=== PATIENT | male | born 1955 | race Caucasian/White ===

== ENCOUNTER 2016-09-20 11:39 | Inpatient (IN) | payer MEDICARE ==
[2016-09-20] VITALS (9 sets, daily range): BP systolic 127–161; BP diastolic 63–83; PULSE 66–71; RESP 18–22; O2SAT 89–100
[~2016-09-20] VITALS: Ht 167.6 cm; Wt 108.8 kg
[~2016-09-20 11:39] MED LIST: ACET-171 PO; ASPI-973 PO; CARV3.12 PO; CLOP75TA3 PO; FAMO40TA6 PO; GLIP10TA10 PO; KEP500TA PO; LIP40 PO; TAMS0.4C98 PO
[2016-09-20] MEDS ORDERED: Albuterol 2.5 mg/3 mL Inhalation Solution NEB ONE ×2 (12:05→12:55)
[2016-09-20 12:45] LABS: BASOPHILS % (AUTO) 0.3 % (0-3); EOSINOPHILS % (AUTO) 3.4 % (0-5); MONOCYTES % (AUTO) 12.9 % (4-12); Mean Corpuscular Hemoglobin 27.3 pg (27.0-35.0); Mean Corpuscular Volume 86.4 fL (81-100); NEUTROPHILS % (AUTO) 69.9 % (40-74); Platelet Count 241 bil/L (150-400)
--- NOTE | 2016-09-20 12:45 | ED.REPORT ---
HPI-General Illness Date of Service September 20, 2016 ED Provider: Matthew Paris DO The patient is a 61 year old male w/ a hx of right foot amputation, CVA, CHF, A- fib, hyperlipidemia, HTN, and pleural effusion who presents to the ED due to SOB for the past 3 days. C/o associated cold symptoms including fever, wheezing , and nasal congestion. He has been seen by an infectious disease doctor for a right leg infection. He denies chills, diaphoresis, chest pain, and abdominal pain. Nursing Notes Stated Complaint: WEAKNESS/WHEEZING Chief Complaint: Respiratory Complaints Nursing Notes Reviewed: Yes Allergies: Coded Allergies: No Known Allergies (Unverified , 09/20/16) Scheduled Aspirin (Aspirin) 81 Mg Tablet 81 MG PO DAILY Atorvastatin (Lipitor) 40 Mg Tablet 40 MG PO DAILY Carvedilol (Coreg) 3.125 Mg Tablet 3.125 MG PO BID Clopidogrel Bisulfate (Plavix) 75 Mg Tablet 75 MG PO DAILY Famotidine (Famotidine) 40 Mg Tablet 40 MG PO HS Glipizide (Glipizide) 10 Mg Tablet 10 MG PO DAILY Levetiracetam (Keppra) 500 Mg Tablet 500 MG PO BID Tamsulosin (Flomax) 0.4 Mg Capsule 0.4 MG PO DAILY Scheduled PRN Acetaminophen (Acetaminophen) 500 Mg Tablet 500 MG PO Q6H PRN PRN For Pain General Time Seen by MD: 12:00 Chief Complaint Other (shortness of breath) Hx Obtained From: Patient Arrived By: Walk-in Sudden in Onset?: Yes Symptom Duration: Since onset Severity: Current: No pain currently Recent Healthcare: No recent doctor visit, No recent hospitalization Similar Sx Previous: No Past Medical History Past Medical History CVA CHF A-fib hyperilpidemia HTN pleural effusion Past Surgical History 4 vessel Bypass surgery 09/06/12 CABG right foot amputation Smoking History Never Smoker Social History Other Social History: Local resident Ambulatory Status Independent Review of Systems Full Review of Systems Constitutional: Reports: Fever, Denies: Chills Ears / Nose / Throat: Reports: Nasal congestion Respiratory: Reports: Shortness of breath, Wheezing Cardiovascular: Denies: Chest pain GI: Denies: Abdominal pain Skin: Denies Diaphoresis Complete sys rev & neg: except as marked. Physical Exam Vital Signs Vital Signs Date Time Temp Pulse Resp B/P Pulse Ox O2 Delivery O2 Flow Rate FiO2 5/29/17 14:43 70 22 127/76 89 09/20/16 12:31 68 20 100 Room Air 09/20/16 12:09 71 22 146/63 94 Room Air 09/20/16 11:43 36.7 71 20 161/79 92 Room Air Initial VS: Reviewed General/Constitutional: Awake, Alert, Cooperative, Not toxic appearing Head / Eyes: Normocephalic, PERRL Neck: Supple, No JVD Wheezing / Retractions: Positive: Wheezing expiratory (coarse) Rales / Rhonchi: Positive: Rales bilateral bases appears SOB Cardiovascular: Heart rate NL, Regular rhythm, Heart sounds NL Abdomen: Soft, Non-tender Upper Extremities Upper Extremity / MS: Full range of motion, No swelling, No deformity Skin: Warm, Dry Interpretation & Diagnostics Lab Results Interpretation Result Diagram: 09/20/16 1230 09/20/16 1230 Test 09/20/16 12:30 09/20/16 14:49 White Blood Count 8.6th/mm3 (3.8-10.1) Red Blood Count 3.81mil/mm3 (4.40-5.80) Hemoglobin 10.4g/dL (13.8-17.2) Hematocrit 32.9% (41.0-50.0) Mean Corpuscular Volume 86.4fL (81-100) Mean Corpuscular Hemoglobin 27.3pg (27.0-35.0) Mean Corpuscular Hemoglobin Concent 31.6% (32.0-37.0) Red Cell Distribution Width 14.3% (12.3-15.4) Platelet Count 241bil/L (150-400) Neutrophils (%) (Auto) 69.9% (40-74) Lymphocytes (%) (Auto) 13.3% (14-46) Monocytes (%) (Auto) 12.9% (4-12) Eosinophils (%) (Auto) 3.4% (0-5) Basophils (%) (Auto) 0.3% (0-3) Prothrombin Time 11.5sec (8.1-12.5) Prothromb Time International Ratio 1.07ratio Sodium Level 133mEq/L (134-144) Potassium Level 5.1mEq/L (3.5-5.2) Chloride Level 98mEq/L (97-108) Carbon Dioxide Level 24mmol/L (18-29) Blood Urea Nitrogen 52mg/dL (8-27) Creatinine 1.54mg/dL (0.76-1.27) Estimat Glomerular Filtration Rate 49mL/min (>59) Glucose Level 227mg/dL (60-99) Lactic Acid Level 0.9mmol/L (0.4-2.0) Calcium Level 9.2mg/dL (8.5-10.1) Total Bilirubin 0.3mg/dL (0.0-1.2) Aspartate Amino Transf (AST/SGOT) 26U/L (0-50) Alanine Aminotransferase (ALT/SGPT) 33U/L (0-44) Alkaline Phosphatase 101U/L (25-160) Troponin T 0.014ug/L (0.0-0.011) Pro-B-Type Natriuretic Peptide 4345pg/mL (0-210) Total Protein 8.3g/dL (6.4-8.4) Albumin 3.0g/dL (3.4-5.0) Hold Smith Top Tube Received (Received) Urine Color Yellow (YELLOW) Urine Appearance Clear (CLEAR,HAZY) Urine pH 5.0 (5.0-8.0) Urine Specific [place] <1.005 (1.003-1.035) Urine Protein 30mg/dL (NEG,TRACE) Urine Glucose (UA) Negativemg/dL (NEGATIVE) Urine Ketones Negativemg/dL (NEGATIVE) Urine Occult Blood Small (NEGATIVE) Urine Nitrite Negative (NEGATIVE) Urine Bilirubin Negative (NEGATIVE) Urine Urobilinogen Normalmg/dL (NORMAL) Urine Leukocyte Esterase Negative (NEGATIVE) Urine RBC 0-2/hpf (0-2) Urine WBC 0-5/hpf (0-5) Urine Epithelial Cells Occasional/hpf (NONE-MOD) Urine Crystals None seen (NONE SEEN) Urine Bacteria None/hpf (NONE-FEW) Urine Hyaline Casts None/lpf (NONE) Urine Granular Casts None seen (NONE SEEN) Urine Waxy Casts None seen (NONE SEEN) Urine Red Blood Cell Casts None seen (NONE SEEN) Urine White Blood Cell Casts None seen (NONE SEEN) Urine Mucus None seen (None Seen) Urine Trichomonas None seen (NONE SEEN) Urine Yeast None (NONE SEEN) Urinalysis Comment None Urine Culture Reflexed Not indicated ECG Interpretation ECG Interpretation: with LVH Time: 13:02 Interpreted by: ED physician Normal ECG Interpretation: Normal sinus rhythm (rate 67) X-Ray Chest Interpretation Chest Xray Interpretation: IMPRESSION: Bibasilar atelectasis versus pneumonia. Dictated by: Ignacio Restrepo M.D. on 09/20/2016 at 12:45 Approved by: Ignacio Restrepo M.D. on 09/20/2016 at 12:45 View: Portable Interpretation / Wet Read by: Interpret - Radiologist Re-Eval/Medical Decision Med Decision/Clinical Course Pneumonia with associated hypoxia. Likely partially treated with Augmentin. Patient will be admitted for supplement oxygen, regular nebulizer treatments and parenteral antibiotics. Time of Eval: 14:46 Re-Evaluation/Progress Note: Pt rechecked. Room air SAT at 89%. Plan for admission. Consultation : Referral / Consult Name: Rupa Cervantes MD Consulted With: Hospitalist Call Returned at: 15:04 Steel Roller: Accepts admit Note: Case discussed. Dr. Cervantes accepts admit. Counseled Regarding: Diagnosis, Lab results, Need for admission Discharge & Departure Primary Impression: Pneumonia Pneumonia type: due to unspecified organism Laterality: unspecified laterality Lung location: unspecified part of lung Qualified Code: J18.9 - Pneumonia, unspecified organism Disposition: ADMITTED TO HOSPITAL Discharge Condition All VS Reviewed: Yes Condition: Stable Referrals: Venus Galvan MD (PCP) Scribe Attestation Portion of this note were transcribed by Jennifer Melvin. I, Dr. Paris, personally performed the history, physical exam, and medical decision-making: I reviewed and confirmed the accuracy for the information in the transcribed note. Signed by: venkatesh Benz, 09/20/16 1500 copies to: Venus Galvan MD, Timothy S DO September 20, 2016 12:45 Jennifer Melvin September 20, 2016 12:47
--- NOTE | 2016-09-20 12:47 | DRSVH ---
PROCEDURE: X-RAY CHEST, TWO VIEWS ([id number]) INDICATIONS: cough, wheezes TECHNIQUE: 2 views of the chest were acquired. COMPARISON: [facility], , CHEST 2VW, 10/02/2012, 7:51. FINDINGS: Surgical changes and devices: Median sternotomy. Lungs and pleura: No pleural effusions or pneumothorax. Mild patchy bibasilar airspace opacity is pr esent. Mediastinum: Mediastinal contours are normal. Heart size is normal. Bones and chest wall: No suspicious bony abnormalities. Soft tissues appear unremarkable. IMPRESSION: Bibasilar atelectasis versus pneumonia. Dictated by: Ignacio Restrepo M.D. on 09/20/2016 at 12:45 Approved by: Ignacio Restrepo M.D. on 09/20/2016 at 12:45
[2016-09-20 12:57] LABS: INR 1.07 ratio
[2016-09-20 13:04] LABS: TROPONIN T 0.014 ug/L (0.0-0.011)
[2016-09-20] MEDS ORDERED: cefTRIAXone Inj 2,000 MG in Dextrose 5% Minibag Plus 50 ML IV ONE (14:50)
[2016-09-20] MEDS ORDERED: Azithromycin Inj 500 MG in Dextrose 5% w/Vial Mate 250 ML IV ONE (14:50)
[2016-09-20 15:03] LABS: APPEARANCE,URINE CLEAR (CLEAR,HAZY); COLOR,URINE YELLOW (YELLOW); OCCULT BLOOD,URINE SMALL (NEGATIVE); UROBILINOGEN,URINE NORMAL (NORMAL)
[2016-09-20] MEDS ORDERED: Ondansetron 2 mg/mL 2 mL Inj IVPUSH PRN (15:10)
[2016-09-20] MEDS ORDERED: Alum-Mag Hydrox-Simeth 30 mL Suspension PO PRN ×2 (15:10→15:25)
[2016-09-20] MEDS ORDERED: Albuterol 2.5 mg/3 mL Inhalation Solution NEB PRN (15:25)
[2016-09-20] MEDS ORDERED: HYDROcodone-APAP 5-325 mg Tablet PO PRN (15:25)
[2016-09-20] MEDS ORDERED: Polyethylene Glycol (PEG) 17 Gm Powder PO PRN (15:25)
--- NOTE | 2016-09-20 15:53 | PCM.HPMED ---
Subjective Date of Service September 20, 2016 Primary Provider: Admitting Physician: Rupa Cervantes MD Primary Care Physician: Venus Galvan MD Attending Physician: Rupa Cervantes MD Chief Complaint: Malaise, elevated blood pressure, mild cough History of Present Illness: He says that he came to the emergency department today because he noticed systolic blood pressure was 180 at home. Is also concerned because his blood sugar was 162 which is higher than usual for him. He did note the onset of a mild cough 3 days ago but it is only rarely productive and then it is clear sputum. Although the ED physician told me he had reported fever at home, to me patient denied any fever at home and no chills or sweats. Was also reported he had shortness of breath but he denies this as well. Also no chest pain. He says he is seeing Dr. 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 He has been on Augmentin for 3 weeks from his primary care doctor and he says now Dr. Galicia has ordered him an IV medication once weekly for 2 doses. Per pharmacy this was Dalbavancin. He also says that Dr. Wong plans to continue the Augmentin for another 6 weeks. Review of Systems: Review of systems is unremarkable except as noted above. He has not noted any pedal edema. He says he does have a diuretic to use if needed for edema but has not needed it for quite some time. Allergies Coded Allergies: No Known Allergies (Unverified , 09/20/16) Home Medications Tamsulosin (Flomax)0.4 Mg Capsule0.4 Mg PO DAILY Ref 0 Clopidogrel Bisulfate (Plavix)75 Mg Ozmves10 Mg PO DAILY 30 Days Ref 0 Levetiracetam (Keppra) 250 Mg PO BID Glipizide 10 Mg Nvnwrg63 Mg PO BID Famotidine 40 Mg Ijhcws51 Mg PO HS Ref 0 Carvedilol (Coreg)3.125 Mg Tablet3.125 Mg PO BID Ref 0 Atorvastatin (Lipitor)40 Mg Trorol84 Mg PO DAILY Ref 0 Aspirin 81 Mg Krseaf78 Mg PO DAILY Ref 0 Augmentin 875/125 BID PMH Diabetes: Type II, complicated by retinopathy, nephropathy, diabetic ulcers/ osteomyelitis. CAD with 4 VESSEL Bypass surgery 09/06/12 Atrial Fibrillation post op CABG Congestive Heart Failure, hx EF 35%, most recent available echo was from 2013 where EF stated as normal - INTERPRETATION: The left ventricle is normal in size. Left ventricular systolic function is normal and has improved significantly. There is still some residual hypokinesis of the anteroseptum. Overall, LV wall motion has improved since echo study of 11/17/2011. The IVC is dilated (diameter is greater than 2.1 cm) and it collapses less than 50% with a sniff. This suggests a high right atrial pressure of 15 mm Hg. There is a new small to moderate pericardial effusion noted. Edema (occ. pedal) hx "Heart Murmur" but no sig valvular heart disease on 2013 echo Hypertension CKD, stage 3 Chronic anemia Hyperlipidemia hx of pleural effusion 2012 hx of Pneumonia CVA (2007, slight residual deficit in fingers) Seizure disorder related to stroke, prev hosp with Dilantin toxicity s/p right below-knee amputation 2013 for chronic nonhealing wound of his right foot for the prior 7 years. He underwent a right Chopart's amputation in 2010, and subsequent conversion to a right Syme's amputation in April 2012. He still had a persistent draining sinus tract from the wound. Imaging studies demonstrated chronic osteomyelitis involving the calcaneus and distal tibia. He was on chronic suppressive antibiotics, and had nonhealing of his wound. Vascular studies revealed that he had intact flow distally, and did not need revascularization hx lower extrem MRSA Nephrolithiasis Morbid obesity Urinary retention Bell intertrigo Gastroesophageal reflux disease Family History Both parents and some uncles have diabetes and heart disease. Mother is 83 and still living. Father at age 75 related to his diabetes and "letting himself go". Social History Hx Alcohol Use: No Hx Substance Use: No Hx Tobacco Use: No Smoking Status: Never Smoker Living Arrangement: with Friends/Roommate Additional Information Lives with girlfriend of 36 years. Has no children and does not know who would want for his healthcare power of health care attorney. 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 We will observe wound at that time. Lab and Diagnostics Result Diagram: 09/20/16 1230 09/20/16 1230 X-Rays, CTs and MRIs PROCEDURE: X-RAY CHEST, TWO VIEWS ([id number]) INDICATIONS: cough, wheezes TECHNIQUE: 2 views of the chest were acquired. COMPARISON: [facility], , CHEST 2VW, 10/02/2012, 7:51. FINDINGS: Surgical changes and devices: Median sternotomy. Lungs and pleura: No pleural effusions or pneumothorax. Mild patchy bibasilar airspace opacity is present. Mediastinum: Mediastinal contours are normal. Heart size is normal. Bones and chest wall: No suspicious bony abnormalities. Soft tissues appear unremarkable. IMPRESSION: Bibasilar atelectasis versus pneumonia. Assessment & Plan # Possible pneumonia, acute, POA, associated with hypoxia (CXR bb atelectasis vs pneumonia, no reported fever, mild cough mostly nonproductive) - IV ceftriaxone and Zithromax given in the emergency department - Not sure we need to continue antibiotics for pneumonia since diagnosis is not certain and he is already on Augmentin and will be starting vancomycin for lower extremity infection - ED physician reported wheezing in the emergency department so albuterol nebulizer as needed is ordered but currently lungs are clear - Oxygen as needed per nasal cannula although O2 saturation improved to 92% on room air when arrived on the floor # Chronic Systolic Congestive Heart Failure, markedly elevated proBNP, consider exacerbation, might also explain chest x-ray abnormality and hypoxia - will give dose of IV Lasix 80 mg # Right lower extremity wound/infection of BKA stump, being followed by Dr. Galicia as an outpatient - Continue Augmentin - Dr. Galicia had planned Dalbavancin as an outpatient but per pharmacy will change to vancomycin while an inpatient # Diabetes: Type II, complicated by retinopathy, nephropathy, diabetic ulcers/ osteomyelitis. - med Lispro SS - Continue glyburide (later DC'd per pharmacy request) # Borderline elevation of troponin of uncertain significance - Known CAD with 4 VESSEL Bypass surgery 09/06/12 - assymptomatic - EKG with no acute ischemia - recheck troponin this evening and in am - Continue cardiac meds # Hypertension - Continue same medications # CKD, stage 3, stable (creatinine 1.54 today and was 1.55 in March) # Chronic anemia, probably stable (hemoglobin is 10.4 today and was 11.0 in March) - Recheck lab in the morning Other Chronic Medical Problems, continue same: Atrial Fibrillation post op CABG Hyperlipidemia CVA (2007, slight residual deficit in fingers) Seizure disorder related to stroke, prev hosp with Dilantin toxicity s/p right below-knee amputation 2013 for chronic nonhealing wound of his right foot for the prior 7 years. He underwent a right Chopart's amputation in 2010, and subsequent conversion to a right Syme's amputation in April 2012. He still had a persistent draining sinus tract from the wound. Imaging studies demonstrated chronic osteomyelitis involving the calcaneus and distal tibia. He was on chronic suppressive antibiotics, and had nonhealing of his wound. Vascular studies revealed that he had intact flow distally, and did not need revascularization hx lower extrem MRSA Nephrolithiasis Morbid obesity Urinary retention Bell intertrigo Gastroesophageal reflux disease Rupa Cervantes MD September 20, 2016 15:52
[2016-09-20] MEDS ORDERED: GLPZ5T PO (15:59)
[2016-09-20] MEDS ORDERED: Glucose 40% Oral Gel 15 Gm Tube PO PRN (16:00)
[2016-09-20] MEDS ORDERED: LEVE250T4 PO (16:00)
[2016-09-20] MEDS ORDERED: FERR-83 PO (16:01)
[2016-09-20] MEDS ORDERED: AMOX-366 PO (16:01)
[2016-09-20] MEDS ORDERED: FURO40TA4 PO (16:03)
[2016-09-20] MEDS ORDERED: GLIP10TA10 PO (16:07)
[2016-09-20] MEDS ORDERED: SPIR25TA3 PO (16:07)
--- NOTE | 2016-09-20 16:10 | NUR ---
pt admitted from ER for SOB/wheezing. pt denies pain/CP/distress/SOB. Tele started, DIRECTOR OF EXTENSION WORK getting vitals, waiting on orders.
[2016-09-20] MEDS: Sodium Chloride LOK Flush 10 mL Syringe IVFLUSH SCH (16:25)
[2016-09-20] MEDS: Vancomycin Dose per Pharmacist XX SCH ×2 (16:40→19:57)
[2016-09-20] MEDS ORDERED: Vancomycin Inj 1,750 MG in 0.9% Sodium Chloride 500 ML IV ONE (16:50)
[2016-09-20] MEDS ORDERED: Furosemide 10 mg/mL 10 mL Inj IVPUSH ONE (17:05)
[2016-09-20] MEDS: Insulin LISPRO 300 Unit/3 mL Inj SUBQ SCH ×2 (17:30→19:57)
[2016-09-20] MEDS: Amoxicillin-Clav 875-125 mg Tablet PO SCH (20:02)
[2016-09-21] VITALS (10 sets, daily range): BP systolic 127–146; BP diastolic 72–84; PULSE 60–77; RESP 18–20; O2SAT 92–100
[2016-09-21] MEDS: Sodium Chloride LOK Flush 10 mL Syringe IVFLUSH SCH ×3 (00:09→17:13)
--- NOTE | 2016-09-21 04:50 | NUR ---
respiratory Pt denies SOB; noted slight SOB with exertion. able to "hop" to the bathroom with FWW and SBA. RBKA stump dressing CDI. will be changed during the day per MD order. sats in low 80s when sleeping. pt needed 2L O2@ night; sats in high 90s.
[2016-09-21 07:04] LABS: Mean Corpuscular Hemoglobin 27.4 pg (27.0-35.0); Mean Corpuscular Volume 87.1 fL (81-100)
[2016-09-21 07:36] LABS: TROPONIN T 0.011 ug/L (0.0-0.011)
[2016-09-21] MEDS: Insulin LISPRO 300 Unit/3 mL Inj SUBQ SCH ×4 (07:46→21:41)
[2016-09-21] MEDS: Amoxicillin-Clav 875-125 mg Tablet PO SCH ×2 (08:28→19:53)
[2016-09-21] MEDS ORDERED: Azithromycin Inj 500 MG in Dextrose 5% w/Vial Mate 250 ML IV SCH (08:30)
[2016-09-21] MEDS ORDERED: cefTRIAXone Inj 2,000 MG in Dextrose 5% Minibag Plus 50 ML IV SCH (08:30)
[2016-09-21] MEDS ORDERED: Furosemide 10 mg/mL 10 mL Inj IVPUSH ONE (10:00)
[2016-09-21] MEDS ORDERED: Furosemide Inj 80 MG in 0.9% Sodium Chloride 50 ML IVPUSH ONE (10:20)
--- NOTE | 2016-09-21 11:16 | NUR ---
Wound Note Wound evaluation orders received, patient seen at bedside with Dr Curtis. Diabetic patient has a chronic ulcer at his right Symes amputation site that is 0.6 cm W x 1 cm L x 6 cms deep. Wound is draining tannish drainage moderately, with q tip tunneling deep 6 cm and lateral will tent skin at lateral calf and the tunnel deep 6 cm in medial direction will tent skin at medial calf. Discussed case with Dr Galicia who wished another wound culture to be taken, this was performed. After wound was cleaned it was packed loosely with 1/4" iodoform packing and covered with 4x4 gau[address]aped in place. This can be changed daily by nursing. Draining wound, possibly osteomyelitic in nature, may need further surgical intervention in form of a below knee amputation. Wound care to follow as needed.
--- NOTE | 2016-09-21 11:38 | NUR ---
Social Work: Initial Assessment D: EMR reviewed. Pt is a 61 y/o male admitted for pneumonia hypoxia per H&P. SW met with pt at bedside to conduct initial assessment. Pt was alert and oriented x3. SW explained role and wrote phone number on white board. SW provided DPOA/advanced directive ppw at pt's request and encouraged pt to provide a copy to the hospital when complete. Pt's primary contact is JOSHUA Iglesias ([phone]) who can be contacted for discharge planning. Pt's insurance is Medicare and PCP is Venus Galvan MD. Pt does not have LTC or VA insurance. Pt uses W/C, FWW, knee scooter, and right leg prosthesis to ambulate. Pt does not own or use any other DME. Pt is independent with ADLs. Pt drives. Pt is independent at baseline with the use of FWW, knee scooter and right leg prothesis to ambulate. Pt lives with his SO in a multi-story home, with 4 steps to enter and 15 steps to the second floor, in [place]. Pt states he is able to "move freely throughout his home, including the second level." PT updated SW at 1045 this morning stating that pt declines to work with PT. Pt claims that he has all of the devices and therapy he needs to manage his care. SW confirmed this with pt. SW confirmed with pt that SO will provide transport via POV when pt is medically stable to discharge. SW does not anticipate any discharge needs at this time but will continue to follow EMR for needs that may arise prior to discharge. A: Pt is independent at baseline with the use of FWW, knee scooter and right leg prothesis to ambulate. P: SW confirmed with pt that SO will provide transport via POV when pt is medically stable to discharge. SW does not anticipate any discharge needs at this time but will continue to follow EMR for needs that may arise prior to discharge. JACOB Garcia Addendum: 09/21/16 at 1150 by MICA IBANEZ Amended: Links added.
--- NOTE | 2016-09-21 11:46 | NUR ---
Physical Therapy: PT order received, pt has been up with nursing staff using FWW to ambulate to the bathroom. He reports having a knee scooter, w/c and FWW at home. Pt reports no change in his mobility since coming to the hospital and declines the need for PT evaluation. notified in rounds. Recommend pt continue to mobilize with nursing staff. Please re-consult PT as needed if pt's mobility declines.
--- NOTE | 2016-09-21 15:25 | PCM.PNMED ---
Subjective Date of Service September 21, 2016 Subjective Denies cough although later in the day was noted to have coughing spell. He feels like he is pretty much back to his usual self. Was noted to have hypoxia during the night but he states he would refuse a sleep apnea evaluation and would refuse CPAP and was found to be indicated. Exam Vital Signs Vital Sign - Last Date Time Temp Pulse Resp B/P Pulse Ox O2 Delivery O2 Flow Rate FiO2 09/21/16 14:21 36.7 65 18 146/84 99 Room Air Intake and Output 09/20/16 09/20/16 09/21/16 Cumulative From/Thru 15:00 23:00 07:00 09/20/16 11:43 - 09/21/16 05:12 Intake Total 561 ml 800 ml 1361 ml Output Total 315 ml 1000 ml 1315 ml Balance 246 ml -200 ml 46 ml Intake Oral 400 ml 800 ml 1200 ml IV Total 161 ml 161 ml Output Urine Total 315 ml 1000 ml 1315 ml # Bowel Movements 0 1 1 Exam General: Alert and oriented, no acute distress Heart: Regular Lungs: Clear Abdomen: Soft, non-tender Extremities: No pedal edema. Right BKA stump dressing removed by wound care nurse and there is a small opening which was probed by the nurse and is 6 cm deep IVs and Medications Medications Reviewed: Medications were reviewed in detail Lab and Diagnostics Result Diagram: 09/21/1645 09/21/16 0645 X-Rays, CTs and MRIs PROCEDURE: X-RAY CHEST, TWO VIEWS ([id number]) INDICATIONS: cough, wheezes TECHNIQUE: 2 views of the chest were acquired. COMPARISON: [facility], , CHEST 2VW, 10/02/2012, 7:51. FINDINGS: Surgical changes and devices: Median sternotomy. Lungs and pleura: No pleural effusions or pneumothorax. Mild patchy bibasilar airspace opacity is present. Mediastinum: Mediastinal contours are normal. Heart size is normal. Bones and chest wall: No suspicious bony abnormalities. Soft tissues appear unremarkable. IMPRESSION: Bibasilar atelectasis versus pneumonia. Assessment & Plan # Admitted for possible pneumonia, acute, POA, associated with hypoxia (CXR bb atelectasis vs pneumonia, no reported fever, mild cough mostly nonproductive) - IV ceftriaxone and Zithromax given in the emergency department - Not sure we need to continue antibiotics for pneumonia since diagnosis is not certain and he is already on Augmentin and will be starting vancomycin for lower extremity infection - ED physician reported wheezing in the emergency department so albuterol nebulizer as needed is ordered but currently lungs are clear - Oxygen as needed per nasal cannula although O2 saturation improved to 92% on room air when arrived on the floor # Hx Chronic Systolic Congestive Heart Failure, markedly elevated proBNP, consider exacerbation, might also explain chest x-ray abnormality and hypoxia - Received dose of IV Lasix 80 mg yesterday afternoon and weight down 1.2 kg this morning although still hypoxic during the night - We will repeat IV Lasix today - Obtain echo # Right lower extremity wound/infection of BKA stump, being followed by Dr. Galicia as an outpatient - Continue Augmentin - Dr. Galicia had planned Dalbavancin as an outpatient but per pharmacy started on vancomycin and temperature admission yesterday - Dr. Galicia plans to see him today and plan his Dalbavancin therapy # Diabetes: Type II, complicated by retinopathy, nephropathy, diabetic ulcers/ osteomyelitis. - med Lispro SS - glyburide DC'd per pharmacy request # Borderline elevation of troponin of uncertain significance - Known CAD with 4 VESSEL Bypass surgery 09/06/12 - assymptomatic - EKG with no acute ischemia - recheck troponin last evening normal and this am 0.011 so unlikely to be of any significance - Continue cardiac meds # Hypertension - Continue same medications # CKD, stage 3, stable (creatinine 1.54 today and was 1.55 in March) # Chronic anemia, probably stable (hemoglobin is 10.4 today and was 11.0 in March) - Rechecked Hgb this am and stable at 10.4 Other Chronic Medical Problems, continue same: Atrial Fibrillation post op CABG Hyperlipidemia CVA (2007, slight residual deficit in fingers) Seizure disorder related to stroke, prev hosp with Dilantin toxicity s/p right below-knee amputation 2013 for chronic nonhealing wound of his right foot for the prior 7 years. He underwent a right Chopart's amputation in 2010, and subsequent conversion to a right Syme's amputation in April 2012. He still had a persistent draining sinus tract from the wound. Imaging studies demonstrated chronic osteomyelitis involving the calcaneus and distal tibia. He was on chronic suppressive antibiotics, and had nonhealing of his wound. Vascular studies revealed that he had intact flow distally, and did not need revascularization hx lower extrem MRSA Nephrolithiasis Morbid obesity Urinary retention Bell intertrigo Gastroesophageal reflux disease Disposition: Home, hopefully tomorrow if hypoxia improved VTE Mechanical Devices: Venous Foot Pump Rupa Cervantes MD September 21, 2016 15:25
--- NOTE | 2016-09-21 15:54 | NUR ---
spiritual care: pt request introductory visit. pt in midst of procedure. will plan to follow tomorrow.
--- NOTE | 2016-09-21 16:31 | PCM.PHAPRO ---
Progress Date of Service: September 21, 2016 Malaise, elevated blood pressure, mild cough Vancomycin Management Per Pharmacy: Indication: Cellulitis (Infection of R BKA/stump), rule out osteo Goal Trough: ~15 mg/dL Age: 61 yo Weight: 108 kg Labs: WBC: 8.6->7.9 SrCr: 1.54->1.41 mg/dL Lactic Acid: 0.9 Procalcitonin: 0.05 Est CrCl: ~45 mL/min Nephrotoxic Risk Factors: CKD stage III, Diabetes, CHF Micro: Positive history of MRSA wound infections Vitals: All stable Recommendation: Load: Vancomycin 1750 mg IV x 1 (~16 mg/kg) Maintenance: Vancomycin 1000 mg IV Q24h (~12 mg/kg adjusted body weight) Trough: Draw (EARLY) on 09/22 @ 1600 prior to 2nd maintenance dose to monitor for therapy as well as to monitor for appropriate clearance as pt has history of high troughs w/ vancomycin as well as other nephrotoxic risk factors. Recommend to adjust dose cautiously in this patient in the future due to risk of nephrotoxicity. Pharmacy to continue to monitor and adjust dose as needed. Thank You, Willow Banda, Pharm D. Willow Banda September 21, 2016 16:31
--- NOTE | 2016-09-21 16:31 | DRSVH ---
Formerly [facility] [address] [place] [address] Echocardiogram Report Name: PAM RIVERS EStudy Date: Height: 66 in Hospital Exam Location: [facility] Weight: 240 lb Gender: Male BSA: 2.2 m2 : 1955 Age: 61 yrs BP: 127/72 mmHg Reason For Study: CHF Performed By: Ghada Jackson Referring Physician: WILLIAMS BULLARD Interpretation Summary Left ventricular wall thickness is borderline increased. Left ventricular ejection fraction is estimated to be 45 +/- 5%. Dyskinetic septum, anteroseptal hypokinesis and apical hypokinesis. WMA seems to have progressed since last exam, cardiology consultation is suggested. There is mild tricuspid regurgitation. The right ventricular systolic pressure is estimated at 45 mmHg assuming a right atrial pressure of 15 mm Hg. Procedure: A two-dimensional transthoracic echocardiogram with color flow and Doppler was performed. The study quality was technically adequate. A contrast injection of Definity was performed to improve assessment of LV function. Comparison is made with the echocardiogram of 09/27/2012. Patient was in sinus rhythm with a heart rate varying from 59-68 bpm. Left Ventricle: The left ventricle is normal in size. Left ventricular wall thickness is borderline increased. Proximal septal thickening is noted. Left ventricular ejection fraction is estimated to be 45 +/- 5%. Dyskinetic septum, anteroseptal hypokinesis and apical hypokinesis. WMA seems to have progressed since last exam, cardiology consultation is suggested. Assessment of diastolic parameters indicates a relaxation abnormality of the left ventricle, consistent with normal filling pressures. Right Ventricle: The right ventricle is not well visualized. Atria: Both atria are normal in size. The interatrial septum is intact with no evidence for an atrial septal defect. Mitral Valve: The mitral valve is normal in structure and function. There is trace mitral regurgitation. Aortic Valve: The aortic valve is trileaflet. The aortic valve is mildly calcified. There is no aortic regurgitation. Tricuspid Valve: The tricuspid valve is normal in structure and function. There is mild tricuspid regurgitation. The right ventricular systolic pressure is estimated at 45 mmHg assuming a right atrial pressure of 15 mm Hg. Pulmonic Valve: The pulmonic valve is normal in structure and function. There is trace pulmonic regurgitation. Great Vessels: The aortic root is normal size. The ascending aorta is normal in size. The IVC is dilated (diameter is greater than 2.1 cm) and it collapses less than 50% with a sniff. This suggests a high right atrial pressure of 15 mm Hg. Pericardium/ Pleura There is no pericardial effusion. There is no pleural effusion. MMode/2D Measurements & Calculations LVIDd: 5.0 cm RA long axis LVOT diam LVIDs: 3.8 cm LA A2 area: 15.0 cm FS: 23.6 % LA A4 area: 17.4 cm RA area Ao root diam EPSS: 1.2 cm LA length (vol): 5.2 cm IVSd: 1.1 cm LA vol: 42.8 ml : 12.0 cm asc Aorta LVPWd: 1.1 cm LA vol index RA vol: 29.5 mlDiam: 4.1 cm RA : 13.6 mm2 IVC diam: 2.1 cm LV bergeron. diameter/BSA LV sys. diameter/BSA (cm/m^2): 2.3 (cm/m^2): 1.8 Doppler Measurements & Calculations Ao V2 max: 140.9 cm/secMV E max robinson MV E/A: 1.5 TR max robinson Ao max P.9 mmHg : 80.6 cm/sec Med Peak E' Robinson : 276.3 cm/sec Ao mean P.3 mmHg MV A max robinson TR max PG LVOT Max Robinson : 54.0 cm/sec E/E' med: 16.2 : 30.8 mmHg : 100.8 cm/sec Lat Peak E' Robinson PA V2 max : 100.1 cm/sec LEN(I,D): 2.7 cm E/E' lat: 8.2 PA mean PG sev ratio: 0.71 E/e' average : 1.9 mmHg MV dec time: 0.15 sec Ao V2 mean LV V1 max PG PA V2 mean : 99.3 cm/sec : 67.1 cm/sec Ao V2 VTI LV V1 VTI: 21.4 cmPA pr(Accel) : 43.0 mmHg LEN(V,D): 2.8 cm2 LEN indexed to BSA (cm^2/m^2): 1.3 Electronically signed by: Zain Egan on Reading Physician:09/21/2016 04:30 PM
[2016-09-21] MEDS ORDERED: Vancomycin 1 Gm/200 mL NS Premix IV SCH (17:00)
--- NOTE | 2016-09-21 18:31 | NUR ---
BS Pt blood glucose at 208, pt refused insulin. Said he does not take it at home and doesn't want it. Will continue to monitor. Addendum: 09/21/16 at 1833 by JOSELYN RAJPUT RN MISTI BS at 1700. Before dinner.
--- NOTE | 2016-09-21 18:41 | CONS ---
[address] [address] CONSULTATION REPORT PATIENT: PAM RIVERS : 1955 MR#: [id number] ADMIT: 09/20/2016 JOB ID: [id number] DATE OF SERVICE: 09/21/[address] Rupa Cervantes for this timely consult. REASON FOR CONSULTATION: Chronic osteomyelitis, right BKA stump, now admitted with respiratory symptoms. HISTORY OF PRESENT ILLNESS: The patient is an unfortunate, 61-year-old gentleman known to me from some recent outpatient visits. The patient has a history of underlying diabetes which has led to a wide variety of complications. In addition, he is known to have coronary artery disease and to have had a CVA in the past as well as some degree of congestive heart failure. He underwent an amputation in 2010 which was modified in 2012 of his right foot and ankle. Unfortunately, he has developed a chronic draining sinus from the distal portion of the stump, and radiographs and other data indicate that he has chronic osteomyelitis in that distal stump. 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 Because of these concerns, he came to me recently in referral from Dr. Pineda of Surgery with a plan to try and treat his osteomyelitis in place in the hopes of forestalling or preventing additional amputation. Because he did not want a PICC line as it would also interfere with his work and other activities, we decided on a plan where he would get two doses of the elbow Vancocin a week apart plus long-term oral Augmentin. Note that he has been on Augmentin lately and it seems to have a salutary effect with respect to the odor from this draining sinus. Last week, I saw him in clinic when he had everything setup with the dalbavancin and Augmentin but the patient failed to show for his Augmentin infusion. The nursing staff at the [facility] and I attempted to contact the patient and were told that he was feeling quite ill and was unable to make it for his dalbavancin outpatient infusion for his osteo. Eventually, the patient instead came to emergency department on yesterday afternoon on September 20 and was subsequently admitted because of a variety of symptoms which included primarily nonproductive cough, increasing shortness of breath, malaise and just decreased mobility. He denied any fevers, chills, or sweats with this increased cough, but nonetheless it was thought that he might have an infection by the emergency department doctor, and so he was started on pneumonia-type antibiotics. I was contacted both this weekend when I was on vacation in [place] as well as last night about this case and discussed it at those times with the ER as well as the hospitalist prior to this afternoon's consultation. At this point, the patient says that the symptoms that brought him in in terms of increasing shortness of breath and a cough have essentially resolved though he does have quite a high blood pressure at this point. The patient states at this point, he feels well enough to go home. Note that an echo done during this admission shows reasonable ejection fraction of 45% or so, but progressive wall motion abnormalities. More tricuspid regurg suggesting perhaps worsening at least right-sided congestive heart failure. PAST MEDICAL HISTORY: 1. Diabetes mellitus with retinopathy, nephropathy, neuropathy, diabetic ulcers and osteomyelitis. 2. Organic heart disease; a. Status post four-vessel CABG in 2012. b. Atrial fibrillation. c. CHF. 3. Chronic renal insufficiency, mild, hyperlipidemia, history of primary. History of pneumonia. History of pleural effusion. 4. CVA 2007. 5. Seizure disorder related to the CVA. 6. Status post BKA, as mentioned, with nonhealing sinus tract problem. 7. Nephrolithiasis. 8. Obesity. 9. GERD. 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 He lives with his girlfriend of 30 years. He has no children. FAMILY HISTORY: Negative for tuberculosis in first and second-degree relatives. REVIEW OF SYSTEMS: This afternoon, the patient has no significant headache, no sinus complaints, no significant sore throat. No productive cough. He notes that his shortness of breath has diminished she has no pleuritic chest pain. No nausea, vomiting, or diarrhea. No urgency, frequency and no dysuria. His right stump feels about the way it typically does with some drainage but really no pain. The left lower extremity is unchanged and otherwise review of systems is negative. PHYSICAL EXAMINATION: Reveals he is afebrile, temperature 36.7, pulse 65, respiratory rate 18, blood pressure 148/84. He is saturating very well on room air at this point. He looks overall better than he did when I saw him in clinic the last couple of weeks. He is awake and alert. Eyes without conjunctivitis. Nose normal. Oral cavity without thrush or hairy leukoplakia. No cervical adenopathy or JVD is noted. Lungs: With decreased breath sounds bilaterally. Relatively poor air flow but no focal rales or rhonchi are heard. Cardiac tones: Irregular rate and rhythm. The patient is a 2/6 murmur heard best along the right eye left lower sternal border. Abdomen is soft and nontender. No organomegaly or ascites. He does not have a Culp catheter. His right knee is fairly benign. His right stump is bandaged, so I discussed it with Stanislav of Wound Care and I examined it myself one week ago. There is a sinus tract and one can insert a Q-tip of 3-4 cm up that sinus tract. There is some foul odor, but very little purulence. The left lower extremity has decreased pulse and capillary refill, but there is no evidence of skin breakdown. There is no peripheral edema on the left side. The knee on the left side also looks benign. There is no skin rash. The patient's neurologic exam is relatively normal despite his history of stroke and he can move all four extremities reasonably well with fairly good strength. He has peripheral neuropathy in his remaining lower extremity. Remainder of the exam unremarkable. LABORATORIES: Include white count 7900, platelets 252. Creatinine 1.41. Troponin negative. Pro calcitonin basically 0. Urine without white cells. Urine Legionella antigen negative. Urine pneumococcal antigen negative. Blood cultures negative. Respiratory viral PCR panel negative. Culture done of the stump showed a few polys, no organisms. The culture I did last week in clinic of the stump just showed some mixed edgar, and the culture I did two weeks ago in clinic was similar in that no single pathogen was isolated. Going back further in his chart, it is notable that in the past the patient has had methicillin-resistant Staphylococcus aureus isolated but that goes back now three years to 2013 and that involves the foot that was amputated as part of the surgery. IMAGING: Includes a chest x-ray, which shows bibasilar atelectasis versus pneumonia, and we reviewed this x-ray on the view screen and agree that this likely represents atelectasis though, of course, the possibility of pneumonia would be difficult to exclude, but it is really not in any way a very impressive radiograph. IMPRESSION: I think most likely this patient had a viral infection which precipitated this admission. The other possibility is that this is simply worsening of his congestive heart failure which led to his increased respiratory symptoms and his admission over of the past 24 hours. At this point, he appears nearly back to his normal state of health. I discussed this case in person this evening with to her art who plans to do some more aggressive diuresing and hopefully further improve his respiratory symptoms and get him ready for discharge. With respect to his osteomyelitis, we are going to stick to our original plan which is two doses of dalbavancin a week apart. At least one ongoing major national study is evaluating this as a possible viable alternative for long-term PICC line and treatment of osteomyelitis and I think it is worth considering in this patient who does not want to have the right lifestyle to support perhaps a PICC line as an outpatient. In addition to the dalbavancin, we are going to go ahead with our Augmentin. RECOMMENDATIONS: 1. Will discontinue the vancomycin he is receiving. 2. The patient will be given a 1.5 g dose of dalbavancin tonight or 1st thing in the morning in preparation for discharge. 3. I have asked the [facility] to give another dose of dalbavancin in one week through a peripheral IV and that will be on September 29. 4. I will see the patient in my clinic October 06. 5. The patient should continue on Augmentin 875 p.o. b.i.d. Thank you very much for this consultation. At this point, I am going to go ahead and sign off, as I think there is little else going on with this patient at this juncture, and he probably will be discharged tomorrow morning.
[2016-09-21] MEDS ORDERED: Dalbavancin Inj 1,500 MG in Dextrose 5% 500 ML IV ONE (19:00)
[2016-09-22 00:19] VITALS: BP 136/65; PULSE 60; RESP 20; O2SAT 100
[2016-09-22] MEDS: Sodium Chloride LOK Flush 10 mL Syringe IVFLUSH SCH ×2 (00:39→08:29)
[2016-09-22 05:21] VITALS: BP 136/72; PULSE 68; RESP 20; O2SAT 99
--- NOTE | 2016-09-22 07:27 | PCM.DIMED ---
Discharge Instructions Date of Service September 22, 2016 Dates of Hospitalization September 20, 2016 at 15:44 Diet Discharge Diet: Heart Healthy, Diabetic Activity Discharge Activity: No restrictions Patient Instructions Patient Instructions Have your doctor determine ongoing dose of Furosemide (Lasix) and if you will need potassium tablets while you are on it. Also review with him/her the results of your cardiac echo. Follow-up with PCP in: 1 week Rupa Cervantes MD September 22, 2016 07:27
[2016-09-22] MEDS ORDERED: FURO40TA4 PO (07:30)
--- NOTE | 2016-09-22 07:43 | PCM.DC.MED ---
Discharge Summary Date of Service September 22, 2016 Dates of Hospitalization Date of Hospital Admission September 20, 2016 at 15:44 Date of Discharge: September 22, 2016 Providers: Admitting Physician: Rupa Bullard MD Primary Care Physician: Venus Galvan MD Attending Physician: Rupa Bullard MD Diagnosis at Time of Discharge Diagnosis at Time of Discharge Viral respiratory infection Chronic systolic CHF not well controlled Procedures XRay, CTs & MRIs PROCEDURE: X-RAY CHEST, TWO VIEWS ([id number]) INDICATIONS: cough, wheezes TECHNIQUE: 2 views of the chest were acquired. COMPARISON: Located Within [facility], , CHEST 2VW, 10/02/2012, 7:51. FINDINGS: Surgical changes and devices: Median sternotomy. Lungs and pleura: No pleural effusions or pneumothorax. Mild patchy bibasilar airspace opacity is present. Mediastinum: Mediastinal contours are normal. Heart size is normal. Bones and chest wall: No suspicious bony abnormalities. Soft tissues appear unremarkable. IMPRESSION: Bibasilar atelectasis versus pneumonia. Brief History He says that he came to the emergency department today because he noticed systolic blood pressure was 180 at home. Is also concerned because his blood sugar was 162 which is higher than usual for him. He did note the onset of a mild cough 3 days ago but it is only rarely productive and then it is clear sputum. Although the ED physician told me he had reported fever at home, to me patient denied any fever at home and no chills or sweats. Was also reported he had shortness of breath but he denies this as well. Also no chest pain. He says he is seeing Dr. 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 He has been on Augmentin for 3 weeks from his primary care doctor and he says now Dr. Galicia has ordered him an IV medication once weekly for 2 doses. Per pharmacy this was Dalbavancin. He also says that Dr. Wong plans to continue the Augmentin for another 6 weeks. Hospital Course # Admitted for possible pneumonia, acute, POA, associated with hypoxia (CXR bb atelectasis vs pneumonia, no reported fever, mild cough mostly nonproductive) - IV ceftriaxone and Zithromax given in the emergency department - No further antibiotics given for pneumonia since diagnosis is not certain and he is already on Augmentin and will be starting vancomycin for lower extremity infection - Consult by Dr Galicia (he sees patient as an outpatient for chronic leg infection) agreed, felt may have viral infection - ED physician reported wheezing in the emergency department so albuterol nebulizer as needed ordered but no further wheezing noted - Oxygen as needed per nasal cannula although O2 saturation improved to 92% on room air when arrived on the floor - During the night, on room air, O2 saturations do drop into the 80s but patient refuses to be scheduled for a sleep study - Will have home oxygen evaluation prior to discharge # Hx Chronic Systolic Congestive Heart Failure, markedly elevated proBNP, consider exacerbation, might also explain chest x-ray abnormality and hypoxia - Received dose of IV Lasix 80 mg September 20 afternoon and weight down 1.2 kg the next morning although still hypoxic during the night - Repeat IV Lasix september 21 but no weight recorded on the morning of discharge - Echo shows worsened left ventricle wall motion abnormalities, advised patient he should have his PCP review this and determine if cardiology follow-up or additional evaluation is indicated - As an outpatient he had just been using Lasix 40 mg when necessary but does not often get pedal edema, we will change this to 80 mg daily - Advised to follow with PCP regarding diuretic dosing and potassium level # Right lower extremity wound/infection of BKA stump, being followed by Dr. Galicia as an outpatient who had been planning outpatient Dalbavancin for him - Continue Augmentin - Initially received IV vancomycin - Then Dr. Galicia consultation September 21 and gave Dalbavancin which is to be repeated in one week as an outpatient # Diabetes: Type II, complicated by retinopathy, nephropathy, diabetic ulcers/ osteomyelitis. - med Lispro SS - glyburide held per pharmacy request, resume at the time of discharge # Borderline elevation of troponin of uncertain significance - Known CAD with 4 VESSEL Bypass surgery 09/06/12 - assymptomatic - EKG with no acute ischemia - recheck troponin last evening normal and this am 0.011 so unlikely to be of any significance - Continue cardiac meds - As noted above we will have PCP follow-up on this and echocardiogram results # Hypertension - Continue same medications # CKD, stage 3, stable (creatinine 1.54 today and was 1.55 in March) # Chronic anemia, probably stable (hemoglobin is 10.4 today and was 11.0 in March) - Rechecked Hgb this am and stable at 10.4 Other Chronic Medical Problems, continue same: Atrial Fibrillation post op CABG Hyperlipidemia CVA (2007, slight residual deficit in fingers) Seizure disorder related to stroke, prev hosp with Dilantin toxicity s/p right below-knee amputation 2013 for chronic nonhealing wound of his right foot for the prior 7 years. He underwent a right Chopart's amputation in 2010, and subsequent conversion to a right Syme's amputation in April 2012. He still had a persistent draining sinus tract from the wound. Imaging studies demonstrated chronic osteomyelitis involving the calcaneus and distal tibia. He was on chronic suppressive antibiotics, and had nonhealing of his wound. Vascular studies revealed that he had intact flow distally, and did not need revascularization hx lower extrem MRSA Nephrolithiasis Morbid obesity Urinary retention Bell intertrigo Gastroesophageal reflux disease Disposition: Home Exam Vital Signs (Last) Date Time Temp Pulse Resp B/P Pulse Ox O2 Delivery O2 Flow Rate FiO2 09/22/16 05:21 36.2 68 20 136/72 99 Nasal Cannula 2.00 Exam General: Alert and oriented, no acute distress Heart: Regular Lungs: Clear although decreased breath sounds throughout Abdomen: Soft, non-tender Extremities: No left pedal edema, dressing on right BKA stump Test 09/20/16 12:30 09/20/16 14:49 09/20/16 15:30 09/20/16 16:47 Neutrophils (%) (Auto) 69.9% (40-74) Lymphocytes (%) (Auto) 13.3% (14-46) Monocytes (%) (Auto) 12.9% (4-12) Eosinophils (%) (Auto) 3.4% (0-5) Basophils (%) (Auto) 0.3% (0-3) Prothrombin Time 11.5sec (8.1-12.5) Prothromb Time International Ratio 1.07ratio Lactic Acid Level 0.9mmol/L (0.4-2.0) Total Bilirubin 0.3mg/dL (0.0-1.2) Aspartate Amino Transf (AST/SGOT) 26U/L (0-50) Alanine Aminotransferase (ALT/SGPT) 33U/L (0-44) Alkaline Phosphatase 101U/L (25-160) Pro-B-Type Natriuretic Peptide 4345pg/mL (0-210) Total Protein 8.3g/dL (6.4-8.4) Albumin 3.0g/dL (3.4-5.0) Hold Smith Top Tube Received (Received) Urine Color Yellow (YELLOW) Urine Appearance Clear (CLEAR,HAZY) Urine pH 5.0 (5.0-8.0) Urine Specific Malcom <1.005 (1.003-1.035) Urine Protein 30mg/dL (NEG,TRACE) Urine Glucose (UA) Negativemg/dL (NEGATIVE) Urine Ketones Negativemg/dL (NEGATIVE) Urine Occult Blood Small (NEGATIVE) Urine Nitrite Negative (NEGATIVE) Urine Bilirubin Negative (NEGATIVE) Urine Urobilinogen Normalmg/dL (NORMAL) Urine Leukocyte Esterase Negative (NEGATIVE) Urine RBC 0-2/hpf (0-2) Urine WBC 0-5/hpf (0-5) Urine Epithelial Cells Occasional/hpf (NONE-MOD) Urine Crystals None seen (NONE SEEN) Urine Bacteria None/hpf (NONE-FEW) Urine Hyaline Casts None/lpf (NONE) Urine Granular Casts None seen (NONE SEEN) Urine Waxy Casts None seen (NONE SEEN) Urine Red Blood Cell Casts None seen (NONE SEEN) Urine White Blood Cell Casts None seen (NONE SEEN) Urine Mucus None seen (None Seen) Urine Trichomonas None seen (NONE SEEN) Urine Yeast None (NONE SEEN) Urinalysis Comment None Urine Culture Reflexed Not indicated Hemoglobin A1c 6.6% (4.8-5.6) Magnesium Level 1.6mg/dL (1.6-2.6) Urine Legionella pneumophilia Ag Negative (Negative) Test 09/21/16 06:45 White Blood Count 7.9th/mm3 (3.8-10.1) Red Blood Count 3.80mil/mm3 (4.40-5.80) Hemoglobin 10.4g/dL (13.8-17.2) Hematocrit 33.1% (41.0-50.0) Mean Corpuscular Volume 87.1fL (81-100) Mean Corpuscular Hemoglobin 27.4pg (27.0-35.0) Mean Corpuscular Hemoglobin Concent 31.4% (32.0-37.0) Red Cell Distribution Width 14.4% (12.3-15.4) Platelet Count 252bil/L (150-400) Sodium Level 138mEq/L (134-144) Potassium Level 4.9mEq/L (3.5-5.2) Chloride Level 102mEq/L (97-108) Carbon Dioxide Level 24mmol/L (18-29) Blood Urea Nitrogen 50mg/dL (8-27) Creatinine 1.41mg/dL (0.76-1.27) Estimat Glomerular Filtration Rate 54mL/min (>59) Glucose Level 139mg/dL (60-99) Calcium Level 8.8mg/dL (8.5-10.1) Troponin T 0.011ug/L (0.0-0.011) Procalcitonin 0.05ng/mL (0.00-0.08) Discharge Medications Discharge Medications Amoxicillin/Clav K 875-125 mg (Augmentin 875-125 mg) 1 Each Tablet 1 TABLET PO BID (Reported) Aspirin (Aspirin) 81 Mg Tablet 81 MG PO QAM (Reported) Atorvastatin (Lipitor) 40 Mg Tablet 40 MG PO HS (Reported) Carvedilol (Coreg) 3.125 Mg Tablet 6.25 MG PO BID (Reported) Clopidogrel Bisulfate (Plavix) 75 Mg Tablet 75 MG PO QAM (Reported) Famotidine (Famotidine) 40 Mg Tablet 40 MG PO HS (Reported) Ferrous Sulfate (Ferrous Sulfate) 325 Mg Tablet 325 MG PO Q48H (Reported) Furosemide (Furosemide) 40 Mg Tablet 80 MG PO DAILY Prescribed by: RUPA BULLARD MD Glipizide (Glipizide) 10 Mg Tablet 10 MG PO BIDWM (Reported) Levetiracetam (Levetiracetam) 250 Mg Tablet 250 MG PO BID (Reported) Spironolactone (Spironolactone) 25 Mg Tablet 25 MG PO QAM (Reported) Tamsulosin (Flomax) 0.4 Mg Capsule 0.4 MG PO HS (Reported) As needed Acetaminophen (Acetaminophen) 500 Mg Tablet 500 MG PO Q6H PRN PRN For Pain ( Reported) Followup Plan Discharge Diet: Heart Healthy, Diabetic Discharge Activity: No restrictions Patient Instructions Have your doctor determine ongoing dose of Furosemide (Lasix) and if you will need potassium tablets while you are on it. Also review with him/her the results of your cardiac echo. Follow-up with PCP in: 1 week Rupa Bullard MD September 22, 2016 07:43
[2016-09-22 08:00] VITALS: PULSE 75
[2016-09-22] MEDS: Insulin LISPRO 300 Unit/3 mL Inj SUBQ SCH ×2 (08:00→08:23)
[2016-09-22] MEDS: Amoxicillin-Clav 875-125 mg Tablet PO SCH (08:23)
[2016-09-22 08:24] VITALS: BP 146/79; PULSE 70; RESP 18; O2SAT 86
[2016-09-22 09:14] VITALS: PULSE 70
--- NOTE | 2016-09-22 10:13 | NUR ---
Social Work-discharge: Data:EMR reviewed. Pt is on day 2 of hospitalization for pneumonia per H&P. Pt is medically stable for discharge. Pt has declined working with PT and has lots of DME at home. Pt confirms his SO will provide transport home today. Pt seen by RT and does not qualify for Home O2 per RN. No discharge needs identified. All updated and agreeable to plan. Assessment:Pt who is independent at baseline. Plan:Pt to discharge home today via POV. No discharge needs identified. All updated and agreeable to plan. JACOB Alva
--- NOTE | 2016-09-22 11:40 | NUR ---
Discharge Patient departed unit via wheelchair accompanied by staff. Patient Alert and oriented at time of discharge. Patient O2 sats 88-94% on room air, and does not qualify for home O2 per respiratory therapy, but has been encouraged to follow up with a sleep study. Patient displaying good nutritional intake eating 100% of meals. Patient denies current pain. Dressed self and applied own prosthetic. Discharge instructions/medications reviewed prior to discharge. All questions addressed. Patient belongings, discharge instructions in hand. Prescription electronically sent to [facility].
[2016-09-22] MEDS ORDERED: Vancomycin Serum Trough XX ONE (16:00)
== END 2016-09-22 11:42 | disposition home or self-care (01) | DRG 865 ==
LOC: SED 11:39 → MPC 15:44
PROVIDERS: ADMIT Internal Medicine; ATTEND Internal Medicine
DX: B34.9 Viral infection, unspecified (principal); I50.23 Acute on chronic systolic (congestive) heart failure; M86.471 Chronic osteomyelitis with draining sinus, right ankle and foot; I48.91 Unspecified atrial fibrillation; E78.5 Hyperlipidemia, unspecified; E11.319 Type 2 diabetes mellitus with unspecified diabetic retinopathy without macular edema; E11.21 Type 2 diabetes mellitus with diabetic nephropathy; I25.10 Atherosclerotic heart disease of native coronary artery without angina pectoris; K21.9 Gastro-esophageal reflux disease without esophagitis; D63.8 Anemia in other chronic diseases classified elsewhere; G40.909 Epilepsy, unspecified, not intractable, without status epilepticus; E11.622 Type 2 diabetes mellitus with other skin ulcer; E66.01 Morbid (severe) obesity due to excess calories; Z79.84 Long term (current) use of oral hypoglycemic drugs; Z68.38 Body mass index [BMI] 38.0-38.9, adult; Z95.1 Presence of aortocoronary bypass graft; Z79.82 Long term (current) use of aspirin; Z89.511 Acquired absence of right leg below knee

== ENCOUNTER 2017-01-21 23:50 | Inpatient (IN) | payer MEDICARE ==
[~2017-01-21] VITALS: Ht 167.6 cm; Wt 104.5 kg
[~2017-01-21 23:50] MED LIST changes: +AMOX-366 PO; +FERR-83 PO; +FURO40TA4 PO; -KEP500TA PO; +LEVE250T4 PO; +SPIR25TA3 PO
--- NOTE | 2017-01-21 23:55 | ED.REPORT ---
HPI-General Illness Date of Service Jan 21, 2017 ED Provider: Pio Ennis MD Pt is a 61 y/o male w/ a complicated medical hx including CVA with seizure disorder related to stroke on Keppra and Plavix, DM and vasculopathy, CAD s/p CABG x4 in 2012, a-fib not on anticoagulants, CHF w/ reduced EF, HTN, CKD 3, chronic anemia, HLD, chronic wounds and osteomyelitis on chronic abx, presenting to the ED via EMS due to seizure onset about 30-40 minutes prior to arrival. The patient was seizing for 30 minutes prior to his calling EMS. Upon EMS arrival he was found to be seizing with focal R-sided weakness and fixed rightward gaze and was given 5 mg IM Versed with no change. His GCS at that time was estimated at 9; he has been maintaining his airway. His last stroke was 5-6 years ago with seizure disorder as sequelae. The patient was taken off anticoagulants 2 years ago. Further history unable to be obtained secondary to current patient status. Nursing Notes Stated Complaint: SEIZURE Nursing Notes Reviewed: Yes Allergies: Coded Allergies: No Known Allergies (Unverified , 09/20/16) Scheduled Aspirin (Aspirin) 81 Mg Tablet 81 MG PO QAM Atorvastatin (Lipitor) 40 Mg Tablet 40 MG PO HS Carvedilol (Coreg) 3.125 Mg Tablet 6.25 MG PO BID Clopidogrel Bisulfate (Plavix) 75 Mg Tablet 75 MG PO QAM Ferrous Sulfate (Ferrous Sulfate) 325 Mg Tablet 325 MG PO Q48H Furosemide (Furosemide) 40 Mg Tablet 40 MG PO BIDWM Glipizide (Glipizide) 10 Mg Tablet 10 MG PO BIDWM Levetiracetam (Levetiracetam) 250 Mg Tablet 250 MG PO BID Spironolactone (Spironolactone) 25 Mg Tablet 25 MG PO QAM Tamsulosin (Flomax) 0.4 Mg Capsule 0.4 MG PO HS Scheduled PRN Acetaminophen (Acetaminophen) 500 Mg Tablet 500 MG PO Q6H PRN PRN For Pain Famotidine (Famotidine) 40 Mg Tablet 40 MG PO HS PRN PRN For Dyspepsia or Heartburn General Time Seen by MD: 00:00 Chief Complaint Seizure Hx Obtained From: EMS Unable to Obtain Hx: Patient condition Arrived By: Ambulance Sudden in Onset?: Yes Onset Occurred: 31 - 45 minutes ago Symptom Duration: Since onset Past Medical History Past Medical History Diabetes: Type II, complicated by retinopathy, nephropathy, diabetic ulcers/osteomyelitis. CAD with 4 VESSEL Bypass surgery 09/06/12 Atrial Fibrillation post op CABG Congestive Heart Failure, hx EF 35%, most recent available echo was from 2012 where EF stated as normal - INTERPRETATION: The left ventricle is normal in size. Left ventricular systolic function is normal and has improved significantly. There is still some residual hypokinesis of the anteroseptum. Overall, LV wall motion has improved since echo study of 11/17/2011. The IVC is dilated (diameter is greater than 2.1 cm) and it collapses less than 50% with a sniff. This suggests a high right atrial pressure of 15 mm Hg. There is a new small to moderate pericardial effusion noted. Edema (occ. pedal) hx "Heart Murmur" but no sig valvular heart disease on 2013 echo Hypertension CKD, stage 3 Chronic anemia Hyperlipidemia hx of pleural effusion 2012 hx of Pneumonia CVA (2007, slight residual deficit in fingers) Seizure disorder related to stroke, prev hosp with Dilantin toxicity s/p right below-knee amputation 2013 for chronic nonhealing wound of his right foot for the prior 7 years. He underwent a right Chopart's amputation in 2010, and subsequent conversion to a right Syme's amputation in April 2012. He still had a persistent draining sinus tract from the wound. Imaging studies demonstrated chronic osteomyelitis involving the calcaneus and distal tibia. He was on chronic suppressive antibiotics, and had nonhealing of his wound. Vascular studies revealed that he had intact flow distally, and did not need revascularization hx lower extrem MRSA Nephrolithiasis Morbid obesity Urinary retention Bell intertrigo Gastroesophageal reflux disease Past Surgical History 4 vessel CABG 09/06/12 right foot amputation Family History Both parents and some uncles have diabetes and heart disease. Mother is 83 and still living. Father at age 75 related to his diabetes and "letting himself go". Smoking History Never Smoker Social History Alcohol Use: Denies alcohol use Drug Use: Denies drug use Other Social History: Local resident Ambulatory Status Independent Review of Systems Unable to Obtain ROS Patient condition Full Review of Systems Neurologic: Reports: Change LOC, Focal weakness, Seizure Physical Exam Vital Signs Vital Signs Date Time Temp Pulse Resp B/P Pulse Ox O2 Delivery O2 Flow Rate FiO2 01/22/17 01:24 75 19 106/42 95 Nasal Cannula 4 01/22/17 00:00 80 20 99 Nasal Cannula 4 Vital signs stable, see RN paper sheet Initial VS: Reviewed Alertness: Positive: Unresponsive Appearance / Presentation: Positive: Obese Head / Eyes: Atraumatic, Normocephalic, PERRL ENT: Atraumatic, Airway patent, Mucous membranes moist Neck: Atraumatic Respiratory / Chest: Atraumatic, Breath sounds NL, Breath sounds = bilat, No respiratory distress, No rales, No rhonchi, No wheezing, No retractions, No stridor, No chest tenderness, No chest wall deformity, No crepitus Cardiovascular: Heart rate NL, Regular rhythm, Heart sounds NL, No gallop, No murmurs, No rubs Abdomen: Atraumatic, Soft, Non-tender, No guarding, No rebound, No distention Upper Extremities Upper Extremity / MS: Atraumatic Lower Extremity / Pelvis / MS: Atraumatic Ankle / Foot: Atraumatic Skin: Atraumatic, No rash NEURO: Unconcious Fixed rightward gaze with repetitive jerking movements of the eyes consistent with status epilepticus Generalized right-sided weakness Interpretation & Diagnostics Lab Results Interpretation Result Diagram: 01/22/17 0030 01/22/17 0030 Test 01/22/17 00:30 Prothrombin Time 10.9sec (8.1-12.5) Prothromb Time International Ratio 1.02ratio Procalcitonin 0.05ng/mL (0.00-0.08) Hold Smith Top Tube Received (Received) Alcohols < 10mg/dL (0-10) ECG Interpretation ECG Interpretation: Sinus rhythm rate 69 LVH with IVCD LAD Time: 00:15 Interpreted by: ED physician Normal ECG Interpretation: No acute ischemic changes, No change from prior ECGs X-Ray Chest Interpretation Chest Xray Interpretation: Poor inspiration Cannot exclude right-sided infiltrate View: Portable, 1 view Interpretation / Wet Read by: Wet read ED physician CT Head Interpretation Impression: Generalized mild involutional changes, left-sided gliosis/encephalomalacia as above, and 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 No acute intracranial abnormality. Radiologist: Juanis Griffith MD Study: Head CT no contrast Interpretation / Wet Read by: Interpret - Radiologist, Discussed w radiologist Re-Eval/Medical Decision Med Decision/Clinical Course 61-year-old first stroke and seizure disorder presents with status epilepticus with focal right-sided weakness right-sided eye deviation and known prior left hemispheric stroke. CT shows nothing acute but there is encephalomalacia at the site of his prior stroke. He received Versed 5 mg IM in the field, additional 2 mg of Ativan here, and then 500 mg of Keppra additional. Keppra level is pending. Admitted now to the hospital for further evaluation and management. Right-sided weakness appears to be clearing and is likely Juan Luis's paralysis related to seizure. Source of Hx: Old records, EMS Time of Eval: 00:22 Re-Evaluation/Progress Note: Pt rechecked. No longer seizing. Family has arrived and is updated. Time of Eval: 00:52 Re-Evaluation/Progress Note: Pt rechecked. Not seizing. Is now moaning and responsive although remains altered. Airway intact. Informed family of plan for admission. They agree with plan. Consultation : Referral / Consult Name: Anjelica Reddy DO Consulted With: Hospitalist Call Returned at: 01:03 Investigative Assistant: Will see patient, Agrees with eval, Agrees with plan, Accepts admit Counseled Regarding: Diagnosis, Lab results, Need for admission Discharge & Departure Primary Impression: Status epilepticus Additional Impression: Juan Luis's paralysis Disposition: ADMITTED TO HOSPITAL Discharge Condition All VS Reviewed: Yes Condition: Stable Referrals: Venus Galvan MD (PCP) Crit Care Except Billable Proc Time Spent: 30-74 minutes Services Performed: Patient management by me, Time spent at bedside, Reviewing test results, Reviewing imaging, Discussing patient care, Documentation in record, Time with fam/surrogate Critical Care Notes: Status epilepticus; 30 minutes Scribe Attestation Portions of this note were transcribed by Ishan Troncoso. I, Dr. Ennis personally performed the history, physical exam and medical decision-making; I reviewed and confirmed the accuracy of the information in the transcribed note. copies to: Venus Galvan MD, Christopher W MD Jan 21, 2017 23:55 ISHAN TRONCOSO Jan 22, 2017 00:01 Alcohols < 10mg/dL (0-10) ECG Interpretation ECG Interpretation: Sinus rhythm rate 69 LVH with IVCD LAD Time: 00:15 Interpreted by: ED physician Normal ECG Interpretation: No acute ischemic changes, No change from prior ECGs X-Ray Chest Interpretation Chest Xray Interpretation: Poor inspiration Cannot exclude right-sided infiltrate View: Portable, 1 view Interpretation / Wet Read by: Wet read ED physician CT Head Interpretation Impression: Generalized mild involutional changes, left-sided gliosis/encephalomalacia as above, and 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 No acute intracranial abnormality. Radiologist: Juanis Griffith MD Study: Head CT no contrast Interpretation / Wet Read by: Interpret - Radiologist, Discussed w radiologist Re-Eval/Medical Decision Source of Hx: Old records, EMS Time of Eval: 00:22 Re-Evaluation/Progress Note: Pt rechecked. No longer seizing. Family has arrived and is updated. Time of Eval: 00:52 Re-Evaluation/Progress Note: Pt rechecked. Not seizing. Is now moaning and responsive although remains altered. Airway intact. Informed family of plan for admission. They agree with plan. Consultation : Referral / Consult Name: Anjelica Reddy DO Consulted With: Hospitalist Call Returned at: 01:03 Investigative Assistant: Will see patient, Agrees with eval, Agrees with plan, Accepts admit Counseled Regarding: Diagnosis, Lab results, Need for admission Discharge & Departure Primary Impression: Status epilepticus Additional Impression: Juan Luis's paralysis Disposition: ADMITTED TO HOSPITAL Discharge Condition All VS Reviewed: Yes Condition: Stable Referrals: Venus Galvan MD (PCP) Crit Care Except Billable Proc Time Spent: 30-74 minutes Services Performed: Patient management by me, Time spent at bedside, Reviewing test results, Reviewing imaging, Discussing patient care, Documentation in record, Time with fam/surrogate Critical Care Notes: Status epilepticus; 30 minutes Scribe Attestation Portions of this note were transcribed by Ishan Troncoso. I, Dr. Ennis personally performed the history, physical exam and medical decision-making; I reviewed and confirmed the accuracy of the information in the transcribed note. copies to: Venus Galvan MD, Christopher W MD Jan 21, 2017 23:55 ISHAN TRONCOSO Jan 22, 2017 00:01
[2017-01-22] VITALS (13 sets, daily range): BP systolic 106–160; BP diastolic 42–81; PULSE 69–80; RESP 14–20; O2SAT 87–99
[2017-01-22] MEDS ORDERED: 0.9% Sodium Chloride 1,000 ML IV ONE (00:18)
[2017-01-22] MEDS ORDERED: FURO40TA4 PO (00:23)
[2017-01-22 00:40] LABS: BASOPHILS % (AUTO) 0.2 % (0-3); EOSINOPHILS % (AUTO) 1.7 % (0-5); MONOCYTES % (AUTO) 7.8 % (4-12); Mean Corpuscular Hemoglobin 28.3 pg (27.0-35.0); Mean Corpuscular Volume 87.2 fL (81-100); NEUTROPHILS % (AUTO) 81.6 % (40-74); Platelet Count 250 bil/L (150-400)
[2017-01-22 01:06] LABS: INR 1.02 ratio
[2017-01-22] MEDS ORDERED: Alum-Mag Hydrox-Simeth 30 mL Suspension PO PRN (01:40)
[2017-01-22] MEDS ORDERED: Polyethylene Glycol (PEG) 17 Gm Powder PO PRN (01:40)
[2017-01-22] MEDS ORDERED: Ondansetron 2 mg/mL 2 mL Inj IVPUSH PRN (01:40)
[2017-01-22] MEDS ORDERED: Glucose 40% Oral Gel 15 Gm Tube PO PRN (02:00)
--- NOTE | 2017-01-22 02:23 | PCM.HPMED ---
Subjective Date of Service Jan 22, 2017 Primary Provider: Admitting Physician: Anjelica Reddy DO Primary Care Physician: Venus Galvan MD Attending Physician: Anjelica Reddy DO Chief Complaint: Seizure History of Present Illness: Patient is a 61 year old male with past medical history of Seizure disorder on Keppra 250mg BID, CVA, CAD, Afib on Plavix, Diabetes Mellitus T2 with vasculopathy, Systolic Heart failure with reduced EF 35%, and CKD Stage 3 who presents after a seizure witnessed by family. Seizure began this evening after patient went to the bathroom. Family reports that patient was confused and calling people by the wrong name. Patient then began to have generalized seizure, but did not want to call EMS. After about 30 minutes, the patient asked to call EMS. Unknown if patient lost bowel and bladder function. Mother states that patient had been acting like he was not feeling well, and that he was under the weather. History is limited due to patient's current mental status, and his was not able to leave the house. Information gathered from mother, and ED records. Right shoulder IO was obtained in the field. Patient was given ativan without relief of seizure, 5mg IM Versed given without relief. Patient was given a 1, 500mg dose of Keppra and seizures resolved. GCS was 9 and he was maintaining his airway. Review of Systems: Full ROS unable to be obtained due to patient's mental status. Allergies Coded Allergies: No Known Allergies (Unverified , 09/20/16) Home Medications Scheduled Aspirin (Aspirin) 81 Mg Tablet 81 MG PO QAM Atorvastatin (Lipitor) 40 Mg Tablet 40 MG PO HS Carvedilol (Coreg) 3.125 Mg Tablet 6.25 MG PO BID Clopidogrel Bisulfate (Plavix) 75 Mg Tablet 75 MG PO QAM Ferrous Sulfate (Ferrous Sulfate) 325 Mg Tablet 325 MG PO Q48H Furosemide (Furosemide) 40 Mg Tablet 40 MG PO DAILY Glipizide (Glipizide) 10 Mg Tablet 10 MG PO BIDWM Levetiracetam (Levetiracetam) 250 Mg Tablet 250 MG PO BID Spironolactone (Spironolactone) 25 Mg Tablet 25 MG PO QAM Tamsulosin (Flomax) 0.4 Mg Capsule 0.4 MG PO HS Scheduled PRN Acetaminophen (Acetaminophen) 500 Mg Tablet 500 MG PO Q6H PRN PRN For Pain Famotidine (Famotidine) 40 Mg Tablet 40 MG PO HS PRN PRN For Dyspepsia or Heartburn PMH Diabetes: Type II Diabetic retinopathy Diabetic nephropathy diabetic ulcers/osteomyelitis. CAD with 4 VESSEL Bypass surgery 09/06/12 Atrial Fibrillation post op CABG Congestive Heart Failure, EF 45-50% on 09/21/16 Hypertension CKD, stage 3 Chronic anemia Hyperlipidemia CVA (2007, slight residual deficit in fingers) Seizure disorder related to stroke MRSA infections Nephrolithiasis Morbid obesity Urinary retention Bell intertrigo GERD Surgical History 4 vessel CABG 09/06/2012 Right BKA Family History Mother- Diabetes, CAD Father - Diabetes Social History Hx Alcohol Use: No Hx Substance Use: No Hx Tobacco Use: No Smoking Status: Never Smoker Living Arrangement: with Family Exam Vital Signs Vital Sign - Last Date Time Temp Pulse Resp B/P Pulse Ox O2 Delivery O2 Flow Rate FiO2 01/22/17 01:24 75 19 106/42 95 Nasal Cannula 4 Exam Constitutional: Unable to follow commands. Lethargic, likely combination of post -ictal state and side effects of sedatives as patient received 5mg Versed prior to evaluation. No acute distress. GCS 9. Head: normocephalic and atraumatic Eyes: Pupils pinpoint at 4mm but reactive to light and accomodation. no scleral icterus Mouth: poor dentition. No trauma to tongue, buccal mucosa, lips Neck: Supple, no lymphadenopathy Heart: Regular rate and rhythm. no murmurs, rubs, or gallops. Trace edema to LLE Lungs: clear to auscultation. no wheeze, rales, or rhonchi ABD: soft, nontender, bowel sounds present throughout, no hepatosplenomegaly Musculoskeletal: Moves all extremities, but in a purposeless manner. Right BKA. Skin: warm, dry, no rash Neuro: Unable to fully assess, no focal deficits, gag reflex intact, Psych: Unable to assess secondary to patient's mental status. Lab and Diagnostics Labs Item Value Date Time Red Blood Count 4.13 mil/mm3 L 01/22/1729 Mean Corpuscular Volume 87.2 fL 01/22/1729 Mean Corpuscular Hemoglobin 28.3 pg 01/22/1729 Mean Corpuscular Hemoglobin Concent 32.5 % 01/22/1729 Red Cell Distribution Width 13.6 % 01/22/1729 Neutrophils (%) (Auto) 81.6 % H 01/22/1729 Lymphocytes (%) (Auto) 8.5 % L 01/22/1729 Monocytes (%) (Auto) 7.8 % 01/22/1729 Eosinophils (%) (Auto) 1.7 % 01/22/1729 Basophils (%) (Auto) 0.2 % 01/22/1729 Estimat Glomerular Filtration Rate 44 mL/min 01/22/1729 Calcium Level 9.4 mg/dL 01/22/1729 Total Bilirubin 0.5 mg/dL 01/22/1729 Alanine Aminotransferase (ALT/SGPT) 35 U/L 01/22/1729 Aspartate Amino Transf (AST/SGOT) 21 U/L 01/22/1729 Alkaline Phosphatase 99 U/L 01/22/1729 Total Protein 8.6 g/dL H 01/22/1729 Albumin 3.7 g/dL 01/22/1729 Prothrombin Time 10.9 sec 01/22/1729 Prothromb Time International Ratio 1.02 ratio 01/22/1729 Alcohols < 10 mg/dL 01/22/1729 Result Diagram: 01/22/172901/22/1729 X-Rays, CTs and MRIs X-Ray Chest Interpretation Chest Xray Interpretation: Poor inspiration Cannot exclude right-sided infiltrate View: Portable, 1 view Interpretation / Wet Read by: Wet read ED physician CT Head Interpretation Impression: Generalized mild involutional changes, left-sided gliosis/encephalomalacia as above, and 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 No acute intracranial abnormality. Radiologist: Juanis Griffith MD Study: Head CT no contrast Interpretation / Wet Read by: Interpret - Radiologist, Discussed w radiologist 12-lead ECG ECG Interpretation ECG Interpretation: Sinus rhythm rate 69 LVH with IVCD LAD Time: 00:15 Interpreted by: ED physician Normal ECG Interpretation: No acute ischemic changes, No change from prior ECGs Assessment & Plan Patient is a 61 year old male with past medical history of Seizure disorder on Keppra 250mg BID, CVA, CAD, Afib on Plavix, Diabetes Mellitus T2 with vasculopathy, Systolic Heart failure with reduced EF 35%, and CKD Stage 3 who presents after a seizure witnessed by family. -Acute Status Epilepticus, POA, Resolved, Stable - Patient with known seizure disorder post CVA in 2007, normally controlled with Keppra 250mg BID PO, presented after a 45 minute seizure that was controlled after Ativan, Keppra, and Versed were administered, 500mg Keppra given in ED. - Etiology of seizure in previously controlled patient unknown, possible subtherapeutic - 500mg Keppra IV when patient gets to floor, start 500mg BID in AM. - Consult Neurology in AM - Obtain Keppra levels - Acute Leukocytosis, POA, Active, Stable - WBC 13.9 on arrival with Neutrophil 80%. Etiology stress reaction vs. pneumonia, vs. osteomyelitis - Procalcitonin negative - CXR showed questionable right sided infiltrate, possible for aspiration. - Monitor for any fevers, increase in WBC, or signs of infection. - Holding abx at this time. - AM CBC, CMP - History of Chronic Kidney Disease Stage 3, Chronic, POA, Active, Stable - Current baseline looks to be 1.5 - Renal dose medications - Monitor - History of Systolic Congestive Heart Failure, Chronic, Stable - Does not appear to be in exacerbation - Monitor I&Os - Continue home dose of Furosemide 40mg daily - History of Afib, Chronic, Stable - Continue home dose Plavix -History of Diabetes Mellitus, Chronic, Stable - Hold home dose of Glipizide - Start insulin correctional control dose - History of CVA with R residual weakness, Chronic, Stable - Continue home dose of statin Patient is FULL CODE Due to the complexity of case and continued need for care, estimated length of stay is greater than 2 midnights. Pain Evaluation: Adequate Pain Control GI Prophylaxis: H2 elver VTE Prophylaxis Indicated: Meets Criteria for Anticoag Therapy VTE Prophylaxis: Sub-Q Heparin (Unfractionated) Resuscitation Status: CPR: Attempt Resuscitation Attending Statement The patient was seen and examined together with house staff on 01/21/2017 and I agree with the history, exam and plan as outlined in the note above. Oc Hines DO Jan 22, 2017 02:23 Anjelica Reddy DO Jan 22, 2017 05:00
--- NOTE | 2017-01-22 03:39 | NUR ---
Admit Patient admitted to [facility] 2006 at 0215. Patient is opening eyes spontaneously, moans, does not follow commands. IO access present in left humeral head. Sinus rhythm with rates in the 60-70s. IV keppra hung per orders. Seizure precautions in place.
[2017-01-22] MEDS: Heparin 5,000 Unit/mL Inj SUBQ SCH ×4 (05:36→23:48)
[2017-01-22 06:05] LABS: BASOPHILS % (AUTO) 0.3 % (0-3); EOSINOPHILS % (AUTO) 0.9 % (0-5); MONOCYTES % (AUTO) 8.5 % (4-12); Mean Corpuscular Hemoglobin 28.1 pg (27.0-35.0); Mean Corpuscular Volume 87.9 fL (81-100); NEUTROPHILS % (AUTO) 81.2 % (40-74); Platelet Count 233 bil/L (150-400)
--- NOTE | 2017-01-22 06:36 | NUR ---
LOC Patient's level of consciousness improving. Awake, speaking full sentences. No memory of how he got to the hospital, needs frequent reminders of where he is. Appropriate and cooperative with care.
[2017-01-22 07:05] LABS: APPEARANCE,URINE CLEAR (CLEAR,HAZY); COLOR,URINE YELLOW (YELLOW); OCCULT BLOOD,URINE NEGATIVE (NEGATIVE); UROBILINOGEN,URINE NORMAL (NORMAL)
[2017-01-22] MEDS: Insulin LISPRO 300 Unit/3 mL Inj SUBQ SCH ×4 (08:00→21:09)
--- NOTE | 2017-01-22 09:05 | NUR ---
Evaluation completed. Please go to "Notes" then click on "Assessments and Notes" (bottom left corner of screen). Then select appropriate discipline tab on top of screen.
[2017-01-22] MEDS: Famotidine Inj 20 MG in IV Premix 1 EACH IV SCH ×2 (09:20→19:57)
--- NOTE | 2017-01-22 09:29 | DRSVH ---
PROCEDURE: CT BRAIN TPA INDICATIONS: SEIZURE, RIGHT SIDE WEAKNESS TECHNIQUE: Noncontrast 4.5 mm thick angled axial sections acquired from the foramen magnum to the vertex, with c oronal reformats. COMPARISON: [facility], US, CAROTID DUPLEX DOPPLER BILAT, 05/08/2013, 14:40. [facility], MR, BRAIN W/O CONTRAST, 10/31/2012, 10:44. [facility], CT, BRAIN (TPA), 02/28/2011, 12:02. FINDINGS: Image quality: Excellent. CSF spaces: Basal cisterns are patent. No extra-axial fluid collections. Ventricles are normal in size and shape. Brain: No midline shift. No intracranial masses or hemorrhage. Desouza-white matter interface is norm al except in the area of what appears to be encephalomalacia in the left parietal region, which not p reviously present on the most recent available prior brain imaging study (MRI 10/31/12). Skull and face: Calvarium and visualized facial bones are intact, without suspicious lesions. Sinuses: Visualized sinuses and mastoids are clear. IMPRESSION: There is low attenuation within the overlying cortical sulci and the underlying deep whit e matter of the left parietal region, with an appearance considered most likely to represent encephal omalacia from prior stroke. No prior CT or MRI however has shown a stroke in this area and this rais es concern for whether an underlying neoplasm could be present producing adjacent vasogenic edema and a false positive appearance of prior stroke. Contrast-enhanced MR scanning would be recommended if the prior documented left hemispheric stroke in this area has not occurred. This information was conveyed to the emergency room physician at time of this dictation, Dr. Robi cooper. This study fulfills neurological imaging criteria for inclusion or exclusion of acute stroke therapie s based on available published neurological imaging guidelines. Dictated by: Selvin Lynn M.D. on 01/22/2017 at 9:18 Approved by: Selvin Lynn M.D. on 01/22/2017 at 9:27
--- NOTE | 2017-01-22 09:55 | DRSVH ---
PROCEDURE: X-RAY CHEST ONE VIEW, PORTABLE ([id number]) INDICATIONS: SEIZURE. TECHNIQUE: One view of the chest was acquired. COMPARISON: [facility], CR, XR CHEST 2VW, 09/20/2016, 12:22. [facility], CR, CHEST 2VW, 10/02/2012, 7:51. FINDINGS: Surgical changes and devices: Sternotomy wires, probable prior CABG. Lungs and pleura: No pleural effusions or pneumothorax. Lungs are difficult to accurately assess du e to body habitus and reduced inspiration. Mediastinum: Mediastinal contours appear normal. Heart size is normal. Bones and chest wall: No suspicious bony lesions. Overlying soft tissues appear unremarkable. IMPRESSION: Prominently reduced inspiration, lordotic positioning and large body habitus. Presumed p rior CABG given the sternotomy wires present. No definite pneumonia or aspiration seen. Limited zach dy. Dictated by: Selvin Lynn M.D. on 01/22/2017 at 9:52 Approved by: Selvin Lynn M.D. on 01/22/2017 at 9:53
--- NOTE | 2017-01-22 15:34 | PCM.PNMED ---
Subjective Date of Service Jan 22, 2017 Subjective Patient seen and examined this morning. He states he is not sure what happened and has not had a seizure in many years. Nursing states that his level of consciousness improved throughout the night Exam Vital Signs Vital Sign - Last Date Time Temp Pulse Resp B/P Pulse Ox O2 Delivery O2 Flow Rate FiO2 01/22/17 12:09 37.0 74 16 126/77 98 Nasal Cannula 1.00 Intake and Output 01/21/17 01/21/17 01/22/17 Cumulative From/Thru 15:00 23:00 07:00 01/22/17 02:22 - 01/22/17 06:41 Intake Total 0 ml 0 ml Output Total 200 ml 200 ml Balance -200 ml -200 ml Intake Oral 0 ml 0 ml Output Urine Total 200 ml 200 ml # Voids 1 1 Exam General: No acute distress, well-developed, well-nourished, appropriately interactive HEENT: Normocephalic, atraumatic. External ears without defect. Pupils equal, round, and reactive to light and accommodation. Neck: Supple with full range of motion. No jugular venous distension. Cardiovascular: Regular rate and rhythm with no murmurs, rubs, or gallops appreciated Pulmonary: Clear to auscultation bilaterally with no crackles, wheezes, or rhonchi. Normal respiratory effort with no use of accessory muscles. Abdomen: Bowel tones present. Soft, nontender, nondistended. Extremities: Tenderness to palpation of posterior muscle groups of upper and lower extremities No clubbing, cyanosis, edema, or lymphadenopathy appreciated. Amputated right lower leg Skin: Normal temperature, turgor, and texture; no rash, ulcers, or subcutaneous nodules appreciated. Neurological: No focal deficits. Cranial nerves grossly intact. Normal muscle strength, tone, and bulk. Normal golf club repairer strength. Psychiatric: Normal mood and affect. Alert and oriented to person, place, and time. 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 No acute intracranial abnormality. Radiologist: Juanis Griffith MD Study: Head CT no contrast Interpretation / Wet Read by: Interpret - Radiologist, Discussed w radiologist 12-lead ECG ECG Interpretation ECG Interpretation: Sinus rhythm rate 69 LVH with IVCD LAD Time: 00:15 Interpreted by: ED physician Normal ECG Interpretation: No acute ischemic changes, No change from prior ECGs Assessment & Plan Patient is a 61 year old male with past medical history of Seizure disorder on Keppra 250mg BID, CVA, CAD, Afib on Plavix, Diabetes Mellitus T2 with vasculopathy, Systolic Heart failure with reduced EF 35%, and CKD Stage 3 who presents after a seizure witnessed by family. -Acute Status Epilepticus, POA, Resolved, Stable - Patient with known seizure disorder post CVA in 2007, normally controlled with Keppra 250mg BID PO, presented after a 45 minute seizure that was controlled after Ativan, Keppra, and Versed were administered, 500mg Keppra given in ED. - Etiology of seizure in previously controlled patient unknown, possible subtherapeutic -500 mg by mouth Keppra twice a day -MRI ordered to assess seizure versus stroke versus mass -Consider neurology consult based on MRI findings - Obtain Keppra levels - Acute Leukocytosis, POA, Active, Stable - WBC 13.9 on arrival with Neutrophil 80%. 11.3 on 01/22/2017 Etiology stress reaction vs. pneumonia, vs. osteomyelitis - Procalcitonin negative - CXR showed questionable right sided infiltrate, possible for aspiration. - Monitor for any fevers, increase in WBC, or signs of infection. - Holding abx at this time. - AM CBC, CMP - History of Chronic Kidney Disease Stage 3, Chronic, POA, Active, Stable - Current baseline looks to be 1.5 - Renal dose medications - Monitor - History of Systolic Congestive Heart Failure, Chronic, Stable - Does not appear to be in exacerbation - Monitor I&Os - Continue home dose of Furosemide 40mg daily - History of Afib, Chronic, Stable - Continue home dose Plavix -History of Diabetes Mellitus, Chronic, Stable - Hold home dose of Glipizide - Start insulin correctional control dose - History of CVA with R residual weakness, Chronic, Stable - Continue home dose of statin Patient is FULL CODE Patient will likely stay a few more days until we figure out the etiology of his seizure GI Prophylaxis: H2 elver VTE Prophylaxis: Sub-Q Heparin (Unfractionated) Resuscitation Status: CPR: Attempt Resuscitation Attending Statement The patient was seen and examined together with Dr. Lombardo on 01/22/2017 and I agree with the history, exam and plan as outlined in the note above. . Reji Lombardo DO Jan 22, 2017 15:33 Alok Merrill MD Jan 23, 2017 09:28
--- NOTE | 2017-01-22 17:19 | DRSVH ---
PROCEDURE: MRI BRAIN WITH AND WITHOUT CONTRAST ([id number]) INDICATIONS: RULING OUT STROKE VS. SEIZURE VS. MASS TECHNIQUE: Noncontrast axial T1 spin echo, axial T2 fast spin echo, sagittal and axial FLAIR, coronal T2 fast sp in echo, axial gradient echo, axial diffusion and ADC through the brain. After the administration of contrast, axial and coronal T1 spin echo with fat saturation through the brain. COMPARISON: [facility], MR, BRAIN W/O CONTRAST, 11/16/2011, 22:58. [facility], MR, MR ANGIO HEAD WO CON, 01/22/2017, 16:16. [facility], CT, CT BRAIN TPA, 01/22/2017, 0:01. [facility], MR, BRAIN W/O CONTRAST, 10/31/2012, 10:44. FINDINGS: Image quality: Excellent. CSF spaces: Basal cisterns are patent. No extra-axial fluid collections. Ventricles are normal in size and shape. Brain: Diffusion-weighted images demonstrate no acute ischemic insults. There is moderate-sized non -acute infarct in the left MCA territory involving the posterior frontal and parietal lobe with encep halomalacia and gliosis. This has increased in size compared to the last MRI on 10/31/2012. No mass ef fect or midline shift. Susceptibility artifacts are seen within the prior infarcted territory, compat ible with hemosiderin deposition and/or dystrophic calcification. No intracranial mass. No abnormal intracranial enhancement. There is mild cerebral volume loss for age. There is mild periventricular white matter chronic small vessel ischemic change. The brainstem appears normal. No chronic ischem ic insults. Normal intravascular flow voids are present. Skull and face: Calvarial marrow is normal in signal. Orbits appear normal. Sinuses: Sinuses and mastoids appear clear. IMPRESSION: 1. No acute intracranial abnormalities. 2. A moderate-sized, non-acute infarct in the left posterior frontal and parietal lobe with encephalo malacia. There are susceptibility artifacts in the infarcted territory secondary to hemosiderin depos ition. Comparison to the last MRI 10/31/2012, the area of cerebral infarction has increased in size. Hemosiderin deposition is new. 3. No intracranial mass or abnormal enhancement. 4. Mild cerebral volume loss and chronic microvascular ischemic changes. Dictated by: Mendy Ennis M.D. on 01/22/2017 at 16:57 Approved by: Mendy Ennis M.D. on 01/22/2017 at 17:17
--- NOTE | 2017-01-22 17:21 | DRSVH ---
PROCEDURE: MRA ANGIOGRAM HEAD WITHOUT CONTRAST ([id number]) INDICATIONS: seizure, stroke vs mass TECHNIQUE: Noncontrast axial 3-D [id number] MR angiogram, with 3-dimensional maximum intensity projection (M IP) reformats of the internal carotid arteries and posterior circulation then performed. COMPARISON: [facility], MR, ANGIO HEAD W/O CONTRAST, 11/16/2011, 22:58. FINDINGS: Image quality: Excellent. Anterior circulation: Intracranial internal carotid arteries demonstrate normal size and intralumina l flow signal. The flow within the paired anterior cerebral arteries is normal and symmetric. The f low within the middle cerebral arteries is normal and symmetric. The anterior communicating artery i s seen. No stenoses, occlusions, or aneurysms. Posterior circulation: Visualized portions of the vertebral arteries demonstrate normal caliber, and join to form a normal appearing basilar artery. The flow within the posterior cerebral arteries is normal and symmetric. No stenoses, occlusions, or aneurysms. IMPRESSION: No significant stenosis or occlusion in anterior or posterior circulations. Dictated by: Mendy Ennis M.D. on 01/22/2017 at 17:17 Approved by: Mendy Ennis M.D. on 01/22/2017 at 17:20
[2017-01-22] MEDS: Nystatin 100,000 Unit/Gm 15 Gm Powder TOPICAL SCH ×2 (17:37→19:58)
[2017-01-22] MEDS ORDERED: .Epic Conversion Completed XX PRN (18:10)
--- NOTE | 2017-01-22 18:20 | NUR ---
Pain/activity Pt will cry out in pain with repositioning and turning in bed. He also reports that he is having pain at rest. He states the pain is in his back and in his hips, he said he doesn't typically have back pain. He declined any pain medication. Offered to assist the patient to the commode but he declined because he stated he didn't think he could get up. He did not get out of bed this shift except to transfer to the wheelchair to go for a MRI. He was able to do that with minimal assistance, and transfer back to bed.
[2017-01-22] MEDS ORDERED: levETIRAcetam 500 mg Tablet PO SCH (20:30)
--- NOTE | 2017-01-22 23:55 | NUR ---
GI: Pt states he thinks he did not have a seizure- but that he has been having really "hard stools" for which he was bearing down really hard. Pt requesting softener with HS meds- senna given. Pt reluctant to turn- he says it is really painful for his back- pain medication offered but refused.
== END 2017-01-23 01:20 | disposition admitted as inpatient to this hospital (09) | DRG 951 ==
LOC: SED 23:50 → PCC 01-22 01:25
PROVIDERS: ADMIT Internal Medicine; ATTEND Internal Medicine
DX: R69 Illness, unspecified (principal)